=== PATIENT | male | born 1960 | race Caucasian/White ===

== ENCOUNTER 2016-09-05 07:40 | Day surgery (SDC) | payer OTHER ==
[~2016-09-05] VITALS: Ht 172.7 cm; Wt 99.8 kg
[~2016-09-05 07:40] MED LIST: ALLEGRA ALLERGY60 MG PO; ASPIRIN81 MG PO; COLACE100 MG PO; GAS RELIEF80 MG PO; LEVOTHYROXINE125 MCG PO; PERCOCET 325-51 TAB PO; SENNA-S TABLET1 EACH PO
== END 2016-09-05 10:05 | disposition short-term general hospital (02) ==
LOC: SURGOP 07:40
PROC: 0DBP8ZX Excision of Rectum, Via Natural or Artificial Opening Endoscopic, Diagnostic (ICD-10-PCS; principal; 2016-09-05)
DX: Z12.11 Encounter for screening for malignant neoplasm of colon (principal); D12.8 Benign neoplasm of rectum; E89.0 Postprocedural hypothyroidism; Z85.038 Personal history of other malignant neoplasm of large intestine; Z80.0 Family history of malignant neoplasm of digestive organs; Z90.49 Acquired absence of other specified parts of digestive tract; Z79.82 Long term (current) use of aspirin; Z79.899 Other long term (current) drug therapy; Z87.891 Personal history of nicotine dependence; Z82.3 Family history of stroke
CPT/HCPCS: J2175; J2250

== ENCOUNTER → 2016-09-23 | Outpatient (CLI) | payer OTHER | END | disposition short-term general hospital (02) | LOC: CLONCO 05:04 | DX: C19 Malignant neoplasm of rectosigmoid junction (principal) ==

== ENCOUNTER → 2016-12-24 | Outpatient (CLI) | payer OTHER | END | disposition short-term general hospital (02) | LOC: CLONCO 07:11 | DX: Z08 Encounter for follow-up examination after completed treatment for malignant neoplasm (principal); Z85.048 Personal history of other malignant neoplasm of rectum, rectosigmoid junction, and anus; Z92.21 Personal history of antineoplastic chemotherapy; Z90.49 Acquired absence of other specified parts of digestive tract ==